=== PATIENT | female | born 1995 | race Caucasian/White ===

== ENCOUNTER 2019-04-21 12:17 | Emergency (ER) | payer SELFPAY ==
[2019-04-21] MEDS ORDERED: Sodium Chloride 0.9% 10 ML Syringe FLUSH PRN (13:24)
[2019-04-21] MEDS ORDERED: Famotidine 20 MG/2 ML SDV IVPUSH ONE (13:24)
--- NOTE | 2019-04-21 14:06 | EDM.PDOC ---
ED HPI GENERAL MEDICAL PROBLEM - General Chief Complaint: Chest Pain Stated Complaint: Chest Pain Time Seen by Provider: 04/21/19 12:20 Source of Information: Reports: Patient. Denies: Old Records (No [facility] records available) History Limitations: Reports: No Limitations - History of Present Illness INITIAL COMMENTS - FREE TEXT/NARRATIVE: The patient was brought to the emergency room via private automobile by her fianc for evaluation of 11/24 nonspecific mostly generalized, however also possibly retrosternal chest discomfort, including possible pressure, fullness, and nausea with symptoms starting on 04/16/19, however somewhat worse during the last couple of days and this morning. Symptoms appear to have started about 2 days after starting recently initiated Wellbutrin therapy for her anxiety and depression. The patient denies any heart flutter, dizziness, orthostasis, orthopnea, diaphoresis, paresthesias, recent decreased exercise tolerance, or any other anginal-type symptoms.No recent history of abdominal pain, nausea, diarrhea, melena, gross hematochezia, or any food intolerance, including fatty foods, etc., although some intermittent heartburn symptoms with only moderate response to previous OTC Tums. She denies any gross hematuria, colic, or other UTI symptoms. The patient also denies any recent fever, cough, wheezing, dyspnea , etc.. Onset: Gradual Onset Date: 04/16/19 Duration: Constant, Getting Worse Location: Reports: Chest. Denies: Head, Neck, Abdomen, Back, Upper Extremity, Left, Upper Extremity, Right Quality: Reports: Ache, Pressure, Same as Previous Episode Severity: Moderate Improves with: Reports: None Worsens with: Reports: Breathing Context: Denies: Sick Contact, Trauma Associated Symptoms: Reports: Chest Pain, Nausea/Vomiting (No emesis). Denies: Cough, Diaphoresis, Fever/Chills, Headaches, Loss of Appetite, Malaise, Rash, Seizure, Shortness of Breath, Syncope, Weakness Treatments TIME LOCK EXPERT: Reports: Other (see below) (None) Generalized Pain Score (Numeric/FACES): 7 - Related Data Allergies Allergy/AdvReac Type Severity Reaction Status Date / Time No Known Allergies Allergy Verified 04/21/19 12:57 Home Meds: Home Meds Acetaminophen [Tylenol] 650 mg PO Q4H PRN 04/21/19 [History] Magnesium Oxide 400 mg PO DAILY #30 tab 12/05/19 [Rx] Multivitamin [Multi-Vitamin Daily] 1 each PO DAILY 04/21/19 [History] Omeprazole 20 mg PO BIDAC #60 cap.sr 04/21/19 [Rx] buPROPion [Wellbutrin SR] 100 mg PO DAILY 04/21/19 [History] Past Medical History HEENT History: Reports: Other (See Below). Denies: Allergic Rhinitis, Cataract , Glaucoma, Hard of Hearing, Impaired Vision, Macular Degeneration, Otitis Media , Retinal Detachment, Sinusitis Other HEENT History: Frequent strep throat. Cardiovascular History: Reports: Syncope, Other (See Below). Denies: Afib, Aneurysm, Arrhythmia, Blood Clots/VTE/DVT, CAD, Cardiomyopathy, Heart Murmur, High Cholesterol, Hypertension, PVD Other Cardiovascular History: She does not know her cholesterol status. Frequent fainting spells since age 11 with no workup to this point. Respiratory History: Reports: Bronchitis, Recurrent. Denies: Asthma, COPD, Intubation, Difficult, Intubation, Previous, PE, Pneumonia, Recurrent, Pneumothorax, Sleep Apnea, SOB, TB Gastrointestinal History: Reports: GERD. Denies: Celiac Disease, Cholelithiasis , Chronic Constipation, Chronic Diarrhea, Colon Polyp, Fatty Liver, Fecal Incontinence, Gastritis, GI Bleed, Hepatitis, Hiatal Hernia, Inflammatory Bowel Disease, Irritable Bowel Syndrome, Jaundice, PUD Genitourinary History: Reports: UTI, Recurrent. Denies: Acute Renal Failure, BPH, Chronic Renal Insuffiency, Renal Calculus, Urinary Incontinence INTELLECTUAL PROPERTY LAWYER History: Reports: , Therapeutic . Denies: Dysfunctional Uterine Bleeding, Endometriosis, Fibroids, Polycystic Ovaries : 2 Para: 1 LMP (Approximate): Other (See Below) Other INTELLECTUAL PROPERTY LAWYER History: The patient is completing her menses currently. Elective SAB during first trimester as below. Otherwise, Full term without complications during pregnancies or deliveries Musculoskeletal History: Reports: Back Pain, Chronic, Neck Pain, Chronic, Osteoarthritis. Denies: Amputation, Arthritis, Fracture, Gout, RA, SLE Neurological History: Reports: Headaches, Chronic. Denies: Cerebral Aneurysms, Concussion, CVA, Head Trauma, Migraines, Neuropathy, Peripheral, Parkinson's, Seizure, TIA, Vertigo Psychiatric History: Reports: Addiction, Anxiety, Depression, Suicidal Ideation , Other (See Below). Denies: Abuse, Victim of, ADD, ADHD, Alzheimers Disease, Dementia, Psych Hospitalization(s), PTSD, Suicide Attempt Other Psychiatric History: Illicit drug use as below. Suicidal ideation without attempt or previous psychiatric hospitalizations. Endocrine/Metabolic History: Reports: Obesity/BMI 30+. Denies: Diabetes, Gestational, Diabetes, Type I, Diabetes, Type II, Diabetes Mellitus, Type 3c, Hypothyroidism, IDDM Hematologic History: Reports: Iron Deficiency, Other (See Below). Denies: Anemia, Blood Transfusion(s) Other Hematologic History: Frequent plasma donor Immunologic History: Reports: None. Denies: AIDS, HIV, SLE Dermatologic History: Reports: None. Denies: Eczema, Psoriasis - Infectious Disease History Infectious Disease History: Reports: Chicken Pox. Denies: C-Difficile, Measles , Meningitis, Mononucleosis, MRSA, Mumps, Pertussis (Whooping Cough), Rheumatic Fever, Rubella, Scarlet Fever, Shingles, TB, VRE - Past Surgical History Head Surgeries/Procedures: Reports: None HEENT Surgical History: Reports: None. Denies: Adenoidectomy, Cataract Surgery , Eye Surgery, Myringotomy w Tube(s), Naso-Sinus Surgery, Tonsillectomy Cardiovascular Surgical History: Reports: None Respiratory Surgical History: Reports: None GI Surgical History: Reports: None. Denies: Appendectomy, Cholecystectomy, Colonoscopy, EGD, Hernia, Abdominal, Hernia, Inguinal, Hernia Repair/Other Female Surgical History: Reports: D&C, Dilitation & Evacuation, Other (See Below) Other Female Surgeries/Procedures: Elective SAB on 09/01/18. Endocrine Surgical History: Reports: None Neurological Surgical History: Reports: None Musculoskeletal Surgical History: Reports: None Oncologic Surgical History: Reports: None Dermatological Surgical History: Reports: None Social & Family History - Tobacco Use Smoking Status *Q: Current Every Day Smoker Tobacco Use Within Last Twelve Months: Cigarettes Years of Tobacco use: 10 Packs/Tins Daily: 0.5 Used Tobacco, but Quit: No Smoking Cessation Information Provided To Patient: Yes Second Hand Smoke Exposure: Yes Source of Second Hand Smoke Exposure: Fianc smokes Second Hand Smoke Education Provided: Yes - Caffeine Use Caffeine Use: Reports: Coffee (3 cups per day), Energy Drinks (2 cans per day), Soda (1 soda per day). Denies: Tea - Alcohol Use Alcohol Use History: Yes Days Per Week of Alcohol Use: 1 Number of Drinks Per Day: 4 Total Drinks Per Week: 4 Total Drinks Per Week Comment: Initially 4 drinks/various types. No previous DWIs, problems with alcohol abuse, etc. Alcohol Use in Last Twelve Months: Yes Alcohol Use Frequency: Weekly - Recreational Drug Use Recreational Drug Use: Yes Drug Use in Last 12 Months: Yes Recreational Drug Type: Reports: Marijuana/Hashish (Monthly use since age 15). 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 ED EXAM, GENERAL - Physical Exam Exam: See Below Exam Limited By: No Limitations General Appearance: Alert, WD/WN, No Apparent Distress, Anxious (Moderate) Eye Exam: Bilateral Eye: Normal Inspection (Nystagmus. Patient wearing soft contacts), PERRL Ears: Normal External Exam, Normal Canal, Hearing Grossly Normal, Normal TMs Nose: Normal Inspection, Normal Mucosa, No Blood Head: Atraumatic, Normocephalic. No: Facial Swelling, Facial Tenderness, Sinus Tenderness Neck: Normal Inspection, Supple, Non-Tender, Full Range of Motion, Thyromegaly. No: Carotid Bruit, Lymphadenopathy (L), Lymphadenopathy (R) Respiratory/Chest: No Respiratory Distress, Lungs Clear, Normal Breath Sounds, No Accessory Muscle Use, Chest Non-Tender (Some possible nonspecific chest discomfort with deep inspiration). No: Pleural Rub, Retractions Cardiovascular: Normal Peripheral Pulses, Regular Rate, Rhythm, No Edema, No Gallop, No JVD, No Murmur, No Rub. No: Gallop/S3, Gallop/S4, Friction Rub Peripheral Pulses: 2+: Radial (L), Radial (R), Dorsalis Pedis (L), Dorsalis Pedis (R) GI/Abdominal: Normal Bowel Sounds, Soft, Non-Tender, No Organomegaly, No Distention, No Abnormal Bruit, No Mass, Other (Obese). No: Guarding (Female) Exam: Deferred Rectal (Female) Exam: Deferred Back Exam: Normal Inspection, Full Range of Motion. No: CVA Tenderness (L), CVA Tenderness (R), Muscle Spasm Extremities: Normal Inspection, Normal Range of Motion, Non-Tender, No Pedal Edema, Normal Capillary Refill. No: Rosy's Sign Neurological: Alert, Oriented, CN II-XII Intact, Normal Cognition, Normal Gait, Normal Reflexes (Negative Babinski's), No Motor/Sensory Deficits Psychiatric: Anxious (Moderate), Depressed Mood (Moderate with good eye contact and no suicidal ideation) Skin Exam: Warm, Dry, Intact, Normal Color, No Rash. No: Diaphoretic, Wound/ Incision Lymphatic: No Adenopathy EKG INTERPRETATION EKG Date: 04/21/19 Time: 12:23 Rhythm: NSR (With mild sinus arrhythmia) Rate (Beats/Min): 84 [place]: Normal (Neutral) P-Wave: Present (Mild diffuse biphasic P waves with poor R-wave progression in the anterior leads) QRS: Normal (0.09 seconds with T-wave inversions in leads 3 and V1) ST-T: Normal QT: Normal AR/PQ Interval: 0.15 seconds with no delta waves noted Comparison: NA - No Prior EKG EKG Interpretation Comments: 1. No acute ischemic changes 2. Sinus arrhythmia Course - Vital Signs Last Recorded V/S: Last Vital Signs Temp 36.1 C 04/21/19 12:17 Pulse 80 04/21/19 14:20 Resp 14 04/21/19 14:20 BP 136/83 04/21/19 14:20 Pulse Ox 100 04/21/19 14:20 Vital Signs - 24 hr 04/21/19 04/21/19 04/21/19 12:17 12:45 13:15 Temperature [ 36.1 C Temporal] Pulse, 82 82 81 Peripheral [ Pulse Oximetry] Respiratory 16 14 14 Rate Blood Pressure 129/68 129/73 [Left Upper Arm ] O2 Sat by Pulse 100 100 100 Oximetry 04/21/19 04/21/19 13:30 14:20 Temperature [ Temporal] Pulse, 93 80 Peripheral [ Pulse Oximetry] Respiratory 19 14 Rate Blood Pressure 122/68 136/83 [Left Upper Arm ] O2 Sat by Pulse 100 100 Oximetry - Orders/Labs/Meds Orders: Active Orders 24 hr Category Date Time Status Cardiac Monitoring [RC] . DIRECTED Care 04/21/19 13:24 Active EKG Documentation Completion [RC] ASDIRECTED Care 04/21/19 13:24 Active Oxygen Therapy, ED [RC] CONTINUOUS Care 04/21/19 13:24 Active Peripheral IV Care [RC] . DIRECTED Care 04/21/19 13:24 Inactive Pulse Oximetry [RC] CONTINUOUS Care 04/21/19 13:24 Active Up With Assistance [RC] PFP Care 04/21/19 13:24 Active Vital Signs [RC] PFP Care 04/21/19 13:24 Active Nothing per Oral Now Diet [DIET] Diet 04/21/19 Breakfast Active Chest 1V Frontal [CR] Stat Exams 04/21/19 13:24 Taken Obtain Past Medical Record [OM.PC] Urgent Oth 04/21/19 13:24 Active Resuscitation Status Stat Resus Stat 04/21/19 13:24 Ordered Labs: Laboratory Tests 04/21/19 04/21/19 04/21/19 Range/Units 13:40 13:40 13:40 WBC 10.3 H (4.0-10.2) K/uL RBC 3.71 L (3.77-5.09) M/uL Hgb 11.3 L (11.7-15.5) g/dL Hct 34.5 (34.0-46.0) % MCV 93.0 (84.0-98.0) fL MCH 30.5 (28.2-33.3) pg MCHC 32.8 (31.7-36.0) g/dL RDW 12.0 (11.2-14.1) % Plt Count 202 (150-350) K/uL Neut % (Auto) 74.8 (45.0-80.0) % Lymph % (Auto) 17.2 (10.0-50.0) % Larue % (Auto) 7.0 (2.0-14.0) % Eos % (Auto) 0.9 (0.0-5.0) % Baso % (Auto) 0.1 (0.0-2.0) % Neut # (Auto) 7.68 H (1.40-7.00) K/uL Lymph # (Auto) 1.76 (0.50-3.50) K/uL Larue # (Auto) 0.72 (0.00-1.00) K/uL Eos # (Auto) 0.09 (0.00-0.50) K/uL Baso # (Auto) 0.01 (0.00-0.20) K/uL PT 10.7 (9.5-12.0) SEC INR 1.0 APTT 35.2 H (21.0-31.3) SEC D-Dimer, Quantitative 123 (0-400) ng/mL Sodium (136-145) mmol/L Potassium (3.5-5.1) mmol/L Chloride (98-107) mmol/L Carbon Dioxide (21.0-32.0) mmol/L BUN (7-18) mg/dL Creatinine (0.51-1.17) mg/dL Est Cr Clr Drug Dosing mL/min Estimated GFR (MDRD) mL/min Glucose (74-106) mg/dL Lactic Acid (0.4-2.0) mmol/L Uric Acid (2.6-7.2) mg/dL Calcium (8.5-10.1) mg/dL Magnesium (1.8-2.4) mg/dL Total Bilirubin (0.2-1.0) mg/dL AST (15-37) U/L ALT (12-78) U/L Alkaline Phosphatase (46-116) IU/L Creatine Kinase (26-308) U/L Creatine Kinase Index (0.0-2.5) % CK-MB (CK-2) (0.00-3.60) ng/mL Troponin I (0.000-0.056) ng/mL NT-Pro-B Natriuret Pep (0-125) pg/mL Total Protein (6.4-8.2) g/dL Albumin (3.4-5.0) g/dL TSH, Ultra Sensitive (0.358-3.740) mIU/mL 04/21/19 04/21/19 Range/Units 13:40 13:40 WBC (4.0-10.2) K/uL RBC (3.77-5.09) M/uL Hgb (11.7-15.5) g/dL Hct (34.0-46.0) % MCV (84.0-98.0) fL MCH (28.2-33.3) pg MCHC (31.7-36.0) g/dL RDW (11.2-14.1) % Plt Count (150-350) K/uL Neut % (Auto) (45.0-80.0) % Lymph % (Auto) (10.0-50.0) % Larue % (Auto) (2.0-14.0) % Eos % (Auto) (0.0-5.0) % Baso % (Auto) (0.0-2.0) % Neut # (Auto) (1.40-7.00) K/uL Lymph # (Auto) (0.50-3.50) K/uL Larue # (Auto) (0.00-1.00) K/uL Eos # (Auto) (0.00-0.50) K/uL Baso # (Auto) (0.00-0.20) K/uL PT (9.5-12.0) SEC INR APTT (21.0-31.3) SEC D-Dimer, Quantitative (0-400) ng/mL Sodium 140 (136-145) mmol/L Potassium 3.9 (3.5-5.1) mmol/L Chloride 104 (98-107) mmol/L Carbon Dioxide 25.9 (21.0-32.0) mmol/L BUN 13 (7-18) mg/dL Creatinine 0.71 (0.51-1.17) mg/dL Est Cr Clr Drug Dosing 137.74 mL/min Estimated GFR (MDRD) > 60 mL/min Glucose 84 (74-106) mg/dL Lactic Acid 0.7 (0.4-2.0) mmol/L Uric Acid 4.5 (2.6-7.2) mg/dL Calcium 8.8 (8.5-10.1) mg/dL Magnesium 1.6 L (1.8-2.4) mg/dL Total Bilirubin 0.5 (0.2-1.0) mg/dL AST 16 (15-37) U/L ALT 20 (12-78) U/L Alkaline Phosphatase 63 (46-116) IU/L Creatine Kinase 82 (26-308) U/L Creatine Kinase Index 1.1 (0.0-2.5) % CK-MB (CK-2) 0.90 (0.00-3.60) ng/mL Troponin I 0.000 (0.000-0.056) ng/mL NT-Pro-B Natriuret Pep 55 (0-125) pg/mL Total Protein 7.2 (6.4-8.2) g/dL Albumin 3.7 (3.4-5.0) g/dL TSH, Ultra Sensitive 0.609 (0.358-3.740) mIU/mL Meds: Medications Discontinued Medications Generic Name Dose Route Start Last Admin Trade Name Freq PRN Reason Stop Dose Admin Famotidine 40 mg 04/21/19 13:24 Pepcid IVPUSH 04/21/19 13:25 ONETIME ONE Sodium Chloride 10 ml 04/21/19 13:24 Saline Flush FLUSH ASDIRECTED PRN Keep Vein Open IV access could not be obtained. - Radiology Interpretation Free Text/Narrative:: manager retail shows normal sinus rhythm with heart rate in the 80s. Chest x-ray, portable, shows mild pulmonary obstructive disease with no cardiomegaly, CHF, pulmonary infiltrates, pneumothorax, etc. Departure - Departure Time of Disposition: 14:45 Disposition: Home, Self-Care 01 Condition: Good Clinical Impression: Tobacco abuse counseling, Illicit drug use, continuous, Peptic reflux disease, Mixed anxiety depressive disorder, Hypomagnesemia Chest pain Qualifiers: Chest pain type: other chest pain Qualified Code(s): R07.89 - Other chest pain Leukocytosis Qualifiers: Leukocytosis type: bandemia Qualified Code(s): D72.825 - Bandemia Anemia Qualifiers: Anemia type: other cause Other causes of anemia: other cause, not classified Qualified Code(s): D64.89 - Other specified anemias Osteoarthritis Qualifiers: Osteoarthritis location: multiple joints Osteoarthritis type: primary Qualified Code(s): M15.0 - Primary generalized (osteo)arthritis - Discharge Information *PRESCRIPTION DRUG MONITORING PROGRAM REVIEWED*: Not Applicable *COPY OF PRESCRIPTION DRUG MONITORING REPORT IN PATIENT DAVID: Not Applicable Prescriptions: Magnesium Oxide 400 mg PO DAILY #30 tab Omeprazole 20 mg PO BIDAC #60 cap.sr Instructions: Steps to Quit Smoking, [id number], Health Risks of Smoking, Chest Wall Pain, [id number] Referrals: PCP,Not In Area [Primary Care Provider] - Forms: ED Department Discharge, ED Return to Work/School Form Additional Instructions: 1. Followup with your regular provider in 7 days as directed for reevaluation and recommended repeat CBC and magnesium level. Bring these discharge instructions with you to that visit. 2. Tylenol 650 mg by mouth every 4 hours and/or OTC ibuprofen 2-3 tabs by mouth every 6 hours with food as directed./needed. You may stagger these medications for 48-72 hours only, which essentially means that you are receiving a pain medication about every 2 hours. 3. Stop all tobacco and marijuana use RODGER as directed/per provided information and consider contacting Quit LIne, etc.. 4. Discontinue all energy drink use and decrease caffeine intake RODGER as discussed. 5. Work excuse 6. Immediately after this visit verify that your cellular telephone's voicemail has been activated and is empty. Also verify that your home telephone 's answering machine is operating properly and has space to receive messages. Note that it is sometimes necessary for us to be able to contact you at a later date to discuss your medical care. 7. Please remember that we are ALWAYS here for you and want to answer any questions you may have. Feel free to call the hospital any time and we call you back RODGER. 8. Discuss further adjustment of your medications at the above follow-up visit with possible further workup for your heartburn and mild anemia as discussed - Problem List & Annotations (1) Chest pain SNOMED Code(s): 82984547 Code(s): R07.9 - CHEST PAIN, UNSPECIFIED Status: Acute Priority: High Current Visit: Yes Onset Date: ~04/16/19 Annotation/Comment:: Nonspecific chest pain with no true anginal type symptoms. Chest pain protocol was not initiated in the emergency room. Symptoms appear to the patient adjusting to recently initiated Wellbutrin therapy, however no direct evidence of an allergic reaction or significant intolerance. This medication should become continued for now. Work Excuse provided with no activity restrictions warranted. Continue to observe symptoms closely with further workup depending on her clinical course. Note symptoms reproducible with deep inspiration with no evidence of fever or true bronchitic type symptoms. Anxiety component also present. Qualifiers: Chest pain type: other chest pain Qualified Code(s): R07.89 - Other chest pain; R07.8 - Other chest pain (2) Peptic reflux disease SNOMED Code(s): 884621491 Code(s): K21.9 - GASTRO-ESOPHAGEAL REFLUX DISEASE WITHOUT ESOPHAGITIS Status: Chronic Priority: Medium Current Visit: Yes Annotation/Comment:: Initial IV Pepcid therapy was ordered, however note difficult IV access. Begin outpatient Prilosec therapy as per discharge instructions. Further workup including H. pylori stool antigen, EGD, etc. depending on her clinical course. (3) Anemia SNOMED Code(s): 982421934 Code(s): D64.9 - ANEMIA, UNSPECIFIED Status: Acute Priority: Medium Current Visit: Yes Onset Date: 04/21/19 Annotation/Comment:: Mild borderline anemia today. Note that patient has frequently donated plasma in the past. Further workup depending on her clinical course including possible iron studies, GI workup as above, etc. Qualifiers: Anemia type: other cause Other causes of anemia: other cause, not classified Qualified Code(s): D64.89 - Other specified anemias (4) Illicit drug use, continuous SNOMED Code(s): 801007870 Code(s): F19.90 - OTHER PSYCHOACTIVE SUBSTANCE USE, UNSPECIFIED, UNCOMPLICATED Status: Chronic Priority: Medium Current Visit: Yes Annotation/Comment:: Note current anxiety. Discontinuation advisable. (5) Leukocytosis SNOMED Code(s): 867245989, 920796414 Code(s): D72.829 - ELEVATED WHITE BLOOD CELL COUNT, UNSPECIFIED Status: Acute Priority: Medium Current Visit: Yes Onset Date: 04/21/19 Annotation/Comment:: Likely secondary to stress reaction. No significant fever or bronchitic type symptoms. No antibiotic therapy warranted. Close follow-up by regular provider. Qualifiers: Leukocytosis type: bandemia Qualified Code(s): D72.825 - Bandemia (6) Mixed anxiety depressive disorder SNOMED Code(s): 562895901 Code(s): F41.8 - OTHER SPECIFIED ANXIETY DISORDERS Status: Chronic Priority: Medium Current Visit: Yes Annotation/Comment:: Moderate control based on today's evaluation. Continue to observe closely by her regular provider. Note recently initiated medication as above. No suicidal ideation currently, although present prior to initiation of the above medications. Emotional support provided. Further counseling depending on her clinical course. (7) Osteoarthritis SNOMED Code(s): 538696253 Code(s): M19.90 - UNSPECIFIED OSTEOARTHRITIS, UNSPECIFIED SITE Status: Chronic Priority: Medium Current Visit: Yes Annotation/Comment:: Stable by history Qualifiers: Osteoarthritis location: multiple joints Osteoarthritis type: primary Qualified Code(s): M15.0 - Primary generalized (osteo)arthritis (8) Tobacco abuse counseling SNOMED Code(s): 335849233, 674357341, 934699070 Code(s): Z71.6 - TOBACCO ABUSE COUNSELING Status: Chronic Priority: Medium Current Visit: Yes Annotation/Comment:: Tobacco cessation strongly encouraged the patient and her fianc with information provided at discharge. Possible beginning pulmonary obstructive disease. Consider PFTs. - Problem List Review Problem List Initiated/Reviewed/Updated: Yes - My Orders Last 24 Hours: My Active Orders 04/21/19 13:24 Cardiac Monitoring [RC] . DIRECTED EKG Documentation Completion [RC] ASDIRECTED Oxygen Therapy, ED [RC] CONTINUOUS Peripheral IV Care [RC] . DIRECTED Pulse Oximetry [RC] CONTINUOUS Up With Assistance [RC] PFP Vital Signs [RC] PFP Chest 1V Frontal [CR] Stat Obtain Past Medical Record [OM.PC] Urgent Resuscitation Status Stat 04/21/19 Breakfast Nothing per Oral Now Diet [DIET] - Assessment/Plan Last 24 Hours: My Active Orders 04/21/19 13:24 Cardiac Monitoring [RC] . DIRECTED EKG Documentation Completion [RC] ASDIRECTED Oxygen Therapy, ED [RC] CONTINUOUS Peripheral IV Care [RC] . DIRECTED Pulse Oximetry [RC] CONTINUOUS Up With Assistance [RC] PFP Vital Signs [RC] PFP Chest 1V Frontal [CR] Stat Obtain Past Medical Record [OM.PC] Urgent Resuscitation Status Stat 04/21/19 Breakfast Nothing per Oral Now Diet [DIET] Assessment:: As above Plan: As above. Extensive precautions were given to the patient, who is in agreement with the treatment plan. See Patient Instructions for further treatment and plan.
[2019-04-21 14:14] LABS: CHLORIDE,CL 104 mmol/L (98-107); SODIUM,NA 140 mmol/L (136-145)
== END 2019-04-21 14:50 | disposition home or self-care (01) ==
LOC: LL.ED 12:17
DX: R07.89 Other chest pain (principal); K21.9 Gastro-esophageal reflux disease without esophagitis; D72.825 Bandemia; D64.89 Other specified anemias; M15.0 Primary generalized (osteo)arthritis; F41.8 Other specified anxiety disorders; F19.90 Other psychoactive substance use, unspecified, uncomplicated; E83.42 Hypomagnesemia; Z71.6 Tobacco abuse counseling; F17.210 Nicotine dependence, cigarettes, uncomplicated; E66.9 Obesity, unspecified; Z68.30 Body mass index [BMI] 30.0-30.9, adult; Z79.899 Other long term (current) drug therapy
CPT/HCPCS: 36415; 71045; 80053; 82550; 82553; 83605; 83735; 83880; 84443; 84484; 84550; 85025; 85379; 85610; 85730; 93005; 93010; 99284; 99285-25

== ENCOUNTER 2019-12-26 21:15 | Observation (INO) | payer MEDICAID ==
[2019-12-26] MEDS ORDERED: Ketorolac 30 MG/ML SDV IVPUSH ONE (21:42)
[2019-12-26] MEDS ORDERED: Ondansetron 4 MG/2 ML SDV IVPUSH ONE (21:42)
[2019-12-26] MEDS ORDERED: Sodium Chloride 0.9% 1,000 ML IV SCH (21:45)
[2019-12-26] MEDS: Sodium Chloride 0.9% 10 ML Syringe FLUSH PRN ×2 (21:56→23:06)
[2019-12-26 21:59] LABS: CHLORIDE,CL 99 mmol/L (98-107); SODIUM,NA 136 mmol/L (136-145)
--- NOTE | 2019-12-26 22:05 | EDM.PDOC ---
ED HPI GENERAL MEDICAL PROBLEM - General Chief Complaint: Back Pain or Injury Stated Complaint: Backpain Time Seen by Provider: 12/26/19 21:44 Source of Information: Reports: Patient History Limitations: Reports: No Limitations - History of Present Illness INITIAL COMMENTS - FREE TEXT/NARRATIVE: Patient comes to ER complaining of left low back pain that started yesterday. Also complaints of pain in left lower abdomen, burning with urination. Noted to have fever upon arrival. Reports nausea with two episodes emesis. No bowel changes. Also mild nasal congestion during ROS. Hx of previous UTIs but no pyelonephritis. No history of kidney stones. - Related Data Allergies Allergy/AdvReac Type Severity Reaction Status Date / Time No Known Allergies Allergy Verified 04/21/19 12:57 Home Meds: Home Meds Acetaminophen [Tylenol] 650 mg PO Q4H PRN 04/21/19 [History] Magnesium Oxide 400 mg PO DAILY #30 tab 04/21/19 [Rx] Multivitamin [Multi-Vitamin Daily] 1 each PO DAILY 04/21/19 [History] Ferrous Sulfate 325 mg PO DAILY 12/26/19 [History] Non-Formulary Medication [NF Drug] 1 each PO DAILY 12/26/19 [History] Zinc 50 mg PO DAILY 12/26/19 [History] Past Medical History HEENT History: Reports: Other (See Below). Denies: Allergic Rhinitis, Cataract, Glaucoma, Hard of Hearing, Impaired Vision, Macular Degeneration, Otitis Media, Retinal Detachment, Sinusitis Other HEENT History: Frequent strep throat. Cardiovascular History: Reports: Syncope, Other (See Below). Denies: Afib, Aneurysm, Arrhythmia, Blood Clots/VTE/DVT, CAD, Cardiomyopathy, Heart Murmur, High Cholesterol, Hypertension, PVD Other Cardiovascular History: She does not know her cholesterol status. Frequent fainting spells since age 11 with no workup to this point. Respiratory History: Reports: Bronchitis, Recurrent. Denies: Asthma, COPD, Intubation, Difficult, Intubation, Previous, PE, Pneumonia, Recurrent, Pneumothorax, Sleep Apnea, SOB, TB Gastrointestinal History: Reports: GERD. Denies: Celiac Disease, Cholelithiasis, Chronic Constipation, Chronic Diarrhea, Colon Polyp, Fatty Liver, Fecal Incontinence, Gastritis, GI Bleed, Hepatitis, Hiatal Hernia, Inflammatory Bowel Disease, Irritable Bowel Syndrome, Jaundice, PUD Genitourinary History: Reports: UTI, Recurrent. Denies: Acute Renal Failure, BPH, Chronic Renal Insuffiency, Renal Calculus, Urinary Incontinence BOILERMAKER History: Reports: , Therapeutic . Denies: Dysfunctional Uterine Bleeding, Endometriosis, Fibroids, Polycystic Ovaries Other BOILERMAKER History: The patient is completing her menses currently. Elective SAB during first trimester as below. Otherwise, Full term without complications during pregnancies or deliveries Musculoskeletal History: Reports: Back Pain, Chronic, Neck Pain, Chronic, Osteoarthritis. Denies: Amputation, Arthritis, Fracture, Gout, RA, SLE Neurological History: Reports: Headaches, Chronic. Denies: Cerebral Aneurysms, Concussion, CVA, Head Trauma, Migraines, Neuropathy, Peripheral, Parkinson's, Seizure, TIA, Vertigo Psychiatric History: Reports: Addiction, Anxiety, Depression, Suicidal Ideation, Other (See Below). Denies: Abuse, Victim of, ADD, ADHD, Alzheimers Disease, Dementia, Psych Hospitalization(s), PTSD, Suicide Attempt Other Psychiatric History: Illicit drug use as below. Suicidal ideation without attempt or previous psychiatric hospitalizations. Endocrine/Metabolic History: Reports: Obesity/BMI 30+. Denies: Diabetes, Gestational, Diabetes, Type I, Diabetes, Type II, Diabetes Mellitus, Type 3c, Hypothyroidism, IDDM Hematologic History: Reports: Iron Deficiency, Other (See Below). Denies: Anemia, Blood Transfusion(s) Other Hematologic History: Frequent plasma donor Immunologic History: Reports: None. Denies: AIDS, HIV, SLE Dermatologic History: Reports: None. Denies: Eczema, Psoriasis - Infectious Disease History Infectious Disease History: Reports: Chicken Pox. Denies: C-Difficile, Measles, Meningitis, Mononucleosis, MRSA, Mumps, Pertussis (Whooping Cough), Rheumatic Fever, Rubella, Scarlet Fever, Shingles, TB, VRE - Past Surgical History Head Surgeries/Procedures: Reports: None HEENT Surgical History: Reports: None. Denies: Adenoidectomy, Cataract Surgery, Eye Surgery, Myringotomy w Tube(s), Naso-Sinus Surgery, Tonsillectomy Cardiovascular Surgical History: Reports: None Respiratory Surgical History: Reports: None GI Surgical History: Reports: None. Denies: Appendectomy, Cholecystectomy, Colonoscopy, EGD, Hernia, Abdominal, Hernia, Inguinal, Hernia Repair/Other Female Surgical History: Reports: D&C, Dilitation & Evacuation, Other (See Below) Other Female Surgeries/Procedures: Elective SAB on 09/01/18. Endocrine Surgical History: Reports: None Neurological Surgical History: Reports: None Musculoskeletal Surgical History: Reports: None Oncologic Surgical History: Reports: None Dermatological Surgical History: Reports: None Social & Family History - Caffeine Use Caffeine Use: Reports: Coffee (3 cups per day), Energy Drinks (2 cans per day), Soda (1 soda per day). 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 Denies: Black Stool, Bloody Stool, Constipation, Diarrhea, Hematemesis : Reports: Flank Pain, Pain. Denies: Hematuria Musculoskeletal: Reports: No Symptoms Skin: Reports: No Symptoms Neurological: Reports: No Symptoms Psychiatric: Reports: No Symptoms Hematologic/Lymphatic: Reports: No Symptoms ED EXAM, GENERAL - Physical Exam Exam: See Below Exam Limited By: No Limitations General Appearance: Alert, WD/WN, Mild Distress Eye Exam: Bilateral Eye: EOMI, PERRL Ears: Hearing Grossly Normal Nose: No: Nasal Deformity, Nasal Swelling, Nasal Drainage Throat/Mouth: Normal Lips, Normal Voice, No Airway Compromise Head: Atraumatic, Normocephalic Neck: Supple Respiratory/Chest: No Respiratory Distress, Lungs Clear, Normal Breath Sounds, No Accessory Muscle Use, Chest Non-Tender Cardiovascular: No Edema, No Murmur, Tachycardia GI/Abdominal: Tender (LLQ), Abnormal Bowel Sounds (diminished throughout). No: Rigid, Rebound, Mass (Female) Exam: No: Deferred Rectal (Female) Exam: No: Deferred Back Exam: CVA Tenderness (L). No: CVA Tenderness (R), Muscle Spasm, Paraspinal Tenderness, Vertebral Tenderness Extremities: Normal Inspection, Normal Capillary Refill Neurological: Alert, Oriented, Normal Cognition, Normal Gait, No Motor/Sensory Deficits Psychiatric: Normal Affect, Normal Mood Skin Exam: Warm, Dry, Intact, Normal Color Course - Orders/Labs/Meds Orders: Active Orders 24 hr Category Date Time Status Chest 1V Frontal [CR] Stat Exams 12/26/19 21:25 Ordered CBC WITH AUTO DIFF [HEME] Stat Lab 12/26/19 21:39 Ordered COMPREHENSIVE METABOLIC PN,CMP [CHEM] Stat Lab 12/26/19 21:39 Ordered CORONAVIRUS COVID-19 PCR PHL Routine Lab 12/26/19 21:40 Ordered CULTURE BLOOD [BC] Stat Lab 12/26/19 21:50 Ordered CULTURE BLOOD [BC] Stat Lab 12/26/19 21:50 Ordered LACTIC ACID [CHEM] Stat Lab 12/26/19 21:40 Ordered UA W/MICROSCOPIC [URIN] Stat Lab 12/26/19 20:23 Received Sodium Chloride 0.9% [Normal Saline] 1,000 ml Med 12/26/19 21:45 Active IV ASDIRECTED Sodium Chloride 0.9% [Saline Flush] Med 12/26/19 21:41 Active 10 ml FLUSH ASDIRECTED PRN Blood Culture x2 Reflex Set [OM.PC] Stat Oth 12/26/19 21:50 Ordered Saline Lock Insert [OM.PC] Routine Oth 12/26/19 21:41 Ordered Medication Orders Sodium Chloride (Normal Saline) 1,000 mls @ 999 mls/hr IV ASDIRECTED ISMA Sodium Chloride (Saline Flush) 10 ml FLUSH ASDIRECTED PRN PRN Reason: Keep Vein Open Labs: Laboratory Tests 12/26/19 Range/Units 20:23 Urine HCG, Qual Negative Meds: Medications Generic Name Dose Route Start Last Admin Trade Name Freq PRN Reason Stop Dose Admin Sodium Chloride 1,000 mls @ 999 mls/hr 12/26/19 21:45 Normal Saline IV ASDIRECTED ISMA Sodium Chloride 10 ml 12/26/19 21:41 Saline Flush FLUSH ASDIRECTED PRN Keep Vein Open Discontinued Medications Generic Name Dose Route Start Last Admin Trade Name Freq PRN Reason Stop Dose Admin Ketorolac Tromethamine 30 mg 12/26/19 21:42 Toradol IVPUSH 12/26/19 21:43 ONETIME ONE Ondansetron HCl 4 mg 12/26/19 21:42 Zofran IVPUSH 12/26/19 21:43 ONETIME ONE - Radiology Interpretation Free Text/Narrative:: Chest xray unremarkable. - Re-Assessments/Exams Free Text/Narrative Re-Assessment/Exam: 12/26/19 22:08 Labs ordered. Given fever/back pain/nasal congestion a Covid test was performed. test negative. UA + for occult blood and mild pyuria. UC ordered. WBC elevated at 13.7 Thrombocytopenia. K 3.3 Given patient's history of frequent UTIs, along with fever/dysuria/urinary frequency/left low back and left lower abdominal & suprapubic pain, suspect UTI most likely etiology for complaint. Differential includes kidney stone. Patient declined any further imaging including CT to formally rule out kidney stone at this time due to feared cost. She was agreeable with plan to admit observation and receive IV fluids/Rocephin as treatment for possible pyelonephritis. Observation admission felt appropriate given severity of discomfort, tachycardia, fever, and suggestion of developing pyelonephritis. Departure - Departure Time of Disposition: 22:15 Disposition: Refer to Observation Condition: Good Clinical Impression: Acute flank pain, Dysuria - Discharge Information *PRESCRIPTION DRUG MONITORING PROGRAM REVIEWED*: Not Applicable *COPY OF PRESCRIPTION DRUG MONITORING REPORT IN PATIENT DAVID: Not Applicable Referrals: PCP,Not In Area [Primary Care Provider] - - Problem List & Annotations (1) Acute flank pain SNOMED Code(s): 075717014, 502766003 Code(s): R10.9 - UNSPECIFIED ABDOMINAL PAIN Status: Acute Priority: High Current Visit: Yes Onset Date: 12/25/19 Annotation/Comment:: Left back pain in low back and flank area for approximately 24 hours. Accompanied by fever, leukocytosis, nausea,emesis and abdominal discomfort. History of frequent UTIs. WBCs noted in UA. UC pending. Suspect symptoms may be due to developing pyelonephritis. Admit observation/IV fluids/IV Rocephin. Patient wishes to avoid CT scan to rule out kidney stone at this time. (2) Dysuria SNOMED Code(s): 84553863 Code(s): R30.0 - DYSURIA Status: Acute Priority: High Current Visit: Yes Onset Date: 12/25/19 Annotation/Comment:: as above (3) Tobacco abuse counseling SNOMED Code(s): 598102738, 076866455, 083122075 Code(s): Z71.6 - TOBACCO ABUSE COUNSELING Status: Chronic Priority: Medium Current Visit: No Annotation/Comment:: Tobacco cessation strongly encouraged the patient (4) Peptic reflux disease SNOMED Code(s): 588953106 Code(s): K21.9 - GASTRO-ESOPHAGEAL REFLUX DISEASE WITHOUT ESOPHAGITIS Status: Chronic Priority: Medium Current Visit: No Annotation/Comment:: Stable per patient (5) Mixed anxiety depressive disorder SNOMED Code(s): 261080341 Code(s): F41.8 - OTHER SPECIFIED ANXIETY DISORDERS Status: Chronic Priority: Medium Current Visit: No Annotation/Comment:: Stable per patient (6) Hypomagnesemia SNOMED Code(s): 412674764 Code(s): E83.42 - HYPOMAGNESEMIA Status: Chronic Priority: Low Current Visit: No Annotation/Comment:: Taking replacement oral supplement - Problem List Review Problem List Initiated/Reviewed/Updated: Yes - My Orders Last 24 Hours: My Active Orders 12/26/19 20:23 UA W/MICROSCOPIC [URIN] Stat 12/26/19 21:25 Chest 1V Frontal [CR] Stat 12/26/19 21:39 CBC WITH AUTO DIFF [HEME] Stat COMPREHENSIVE METABOLIC PN,CMP [CHEM] Stat 12/26/19 21:40 CORONAVIRUS COVID-19 PCR PHL Routine LACTIC ACID [CHEM] Stat 12/26/19 21:41 Sodium Chloride 0.9% [Saline Flush] 10 ml FLUSH ASDIRECTED PRN Saline Lock Insert [OM.PC] Routine 12/26/19 21:45 Sodium Chloride 0.9% [Normal Saline] 1,000 ml IV ASDIRECTED 12/26/19 21:50 CULTURE BLOOD [BC] Stat CULTURE BLOOD [BC] Stat Blood Culture x2 Reflex Set [OM.PC] Stat - Assessment/Plan Admission H&P: Please use this note as an admission H&P Last 24 Hours: My Active Orders 12/26/19 20:23 UA W/MICROSCOPIC [URIN] Stat 12/26/19 21:25 Chest 1V Frontal [CR] Stat 12/26/19 21:39 CBC WITH AUTO DIFF [HEME] Stat COMPREHENSIVE METABOLIC PN,CMP [CHEM] Stat 12/26/19 21:40 CORONAVIRUS COVID-19 PCR PHL Routine LACTIC ACID [CHEM] Stat 12/26/19 21:41 Sodium Chloride 0.9% [Saline Flush] 10 ml FLUSH ASDIRECTED PRN Saline Lock Insert [OM.PC] Routine 12/26/19 21:45 Sodium Chloride 0.9% [Normal Saline] 1,000 ml IV ASDIRECTED 12/26/19 21:50 CULTURE BLOOD [BC] Stat CULTURE BLOOD [BC] Stat Blood Culture x2 Reflex Set [OM.PC] Stat Assessment:: As above. Stable and suitable for general supervision. Plan: as above. Covid testing and UC pending. Anticipate possible discharge tomorrow on oral antibiotics depending on clinical course. May need to revisit idea of possible CT scan to rule out kidney stone, again depending on clinical course.
[2019-12-26] MEDS ORDERED: Potassium Chloride 20 MEQ Tab.ER PO ONE (22:09)
[2019-12-26] MEDS ORDERED: cefTRIAXone 1 GM in Sodium Chloride 0.9% 100 ML IV ONE (22:27)
[2019-12-26] MEDS ORDERED: Ondansetron 4 MG/2 ML SDV IVPUSH PRN (22:51)
[2019-12-27] MEDS ORDERED: Potassium Chloride 10 MEQ Tab.ER PO ONE (01:00)
[2019-12-27] MEDS: Nicotine 21 MG/24 Hr Patch TRDERM SCH ×2 (01:22→08:54)
[2019-12-27] MEDS: Sodium Chloride 0.9% 1,000 ML IV SCH ×2 (01:22→06:47)
[2019-12-27] MEDS: Acetaminophen 325 MG Tab PO PRN ×2 (01:28→08:58)
[2019-12-27] MEDS ORDERED: Ketorolac 30 MG/ML SDV IVPUSH PRN (05:00)
[2019-12-27 10:09] LABS: CHLORIDE,CL 104 mmol/L (98-107); SODIUM,NA 138 mmol/L (136-145)
--- NOTE | 2019-12-27 11:33 | PCM.DCSUM1 ---
Discharge Summary - Hospital Course Brief History: Admitted for further evaluation and treatment of dysuria/lower abd pain/low back and flank pain/fever Diagnosis: Stroke: No - Discharge Data Discharge Date: 12/27/19 Discharge Disposition: Home, Self-Care 01 Condition: Good - Referral to Home Health Primary Care Physician: PCP Not In Area - Discharge Diagnosis/Problem(s) (1) Acute flank pain SNOMED Code(s): 158111353, 573331665 ICD Code: R10.9 - UNSPECIFIED ABDOMINAL PAIN Status: Acute Priority: High Current Visit: Yes Onset Date: 12/25/19 Problem Details: Left back pain in low back and flank area for approximately 24 hours prior to presentation. Accompanied by fever, leukocytosis, nausea,emesis and abdominal discomfort. History of frequent UTIs. WBCs noted in UA. UC pending. Suspect symptoms may be due to developing pyelonephritis. Admitted observation/IV fluids/IV Rocephin. Patient wishes to avoid CT scan to rule out kidney stone at this time. Feels better this morning but symptoms have not completely resolved. Plan for now will be to have patient receive Rocephin IV tonight and possibly tomorrow night while waiting for culture results. Consider CT of abdomen depending on clinical course. (2) Dysuria SNOMED Code(s): 77910801 ICD Code: R30.0 - DYSURIA Status: Acute Priority: High Current Visit: Yes Onset Date: 12/25/19 Problem Details: as above (3) Tobacco abuse counseling SNOMED Code(s): 246195113, 186306902, 408655595 ICD Code: Z71.6 - TOBACCO ABUSE COUNSELING Status: Chronic Priority: Medium Current Visit: No Problem Details: Tobacco cessation strongly encouraged the patient (4) Peptic reflux disease SNOMED Code(s): 204816440 ICD Code: K21.9 - GASTRO-ESOPHAGEAL REFLUX DISEASE WITHOUT ESOPHAGITIS Status: Chronic Priority: Medium Current Visit: No Problem Details: Stable per patient (5) Mixed anxiety depressive disorder SNOMED Code(s): 210510484 ICD Code: F41.8 - OTHER SPECIFIED ANXIETY DISORDERS Status: Chronic Priority: Medium Current Visit: No Problem Details: Stable per patient (6) Hypomagnesemia SNOMED Code(s): 069328512 ICD Code: E83.42 - HYPOMAGNESEMIA Status: Chronic Priority: Low Current Visit: No Problem Details: Taking replacement oral supplement. Slightly low when level checke this morning. Will have patient increase supplementation and get rechecked in a month. - Patient Summary/Data Hospital Course: Patient received single dose Rocephin last night along with IV fluids. Toradol and Tylenol for pain/fever improved level of comfort. Zofran resolved nausea/emesis. Today patient reports less burning with urination and improved overall comfort. Would like to be discharged home but willing to return for IV Rocephin tonight and again tomorrow if culture results have not been returned. Anticipate switching patient over to oral meds at that time. Will avoid Cipro/Levaquin for now due to potential side effect/toxicity. Precautions reviewed prior to discharge. Covid testing pending. - Patient Instructions Diet: Usual Diet as Tolerated Driving: May Drive Today Showering/Bathing: May Shower Notify Provider of: Fever, Increased Pain, Nausea and/or Vomiting Other/Special Instructions: Return tonight for another dose of antibiotic. OK to come any time between 6-8pm. Anticipate returning again tomorrow night while we are waiting for your culture results. Please call if you have any questions/concerns and return to ER if you are experiencing worsening symptoms. You may need further evaluation as we discussed if this turns out to be something other than a urinary tract infection. Also, increase your Magnesium supplementation a little bit as your level is borderline low. - Discharge Plan *PRESCRIPTION DRUG MONITORING PROGRAM REVIEWED*: Not Applicable *COPY OF PRESCRIPTION DRUG MONITORING REPORT IN PATIENT DAVID: Not Applicable Home Medications: Home Meds Acetaminophen [Tylenol] 650 mg PO Q4H PRN 04/21/19 [History] Magnesium Oxide 400 mg PO DAILY #30 tab 04/21/19 [Rx] Multivitamin [Multi-Vitamin Daily] 1 each PO DAILY 04/21/19 [History] Ferrous Sulfate 325 mg PO DAILY 12/26/19 [History] Non-Formulary Medication [NF Drug] 1 each PO DAILY 12/26/19 [History] Zinc 50 mg PO DAILY 12/26/19 [History] Patient Handouts: Steps to Quit Smoking, [id number], Pyelonephritis, Adult, Coping with Quitting Smoking, Smoking Tobacco Information, Adult, Potassium chloride tablets, extended-release tablets or capsules, Ketorolac injection, Ondansetron injection, Ceftriaxone injection, Urinary Tract Infection, Adult, Nicotine skin patches Forms: Return to Work/Inpatient LLN, ED Department Discharge Referrals: PCP,Not In Area [Primary Care Provider] - - Discharge Summary/Plan Comment DC Time >30 min.: No - General Info Date of Service: 12/27/19 Admission Dx/Problem (Free Text: Suspected UTI Subjective Update: Overall feels improved. Still has some discomfort with urination. Left sided back pain/low abdominal pain improved. No fever this morning. Nausea/emesis improved. Functional Status: Reports: Pain Controlled Numeric/FACES Score: 4 - Review of Systems General: Denies: Fever, Weakness, Chills, Night Sweats HEENT: Reports: Other (no acute changes) Pulmonary: Reports: No Symptoms Cardiovascular: Reports: No Symptoms Gastrointestinal: Reports: Abdominal Pain (suprapubic/left mid and lower abdomen), Decreased Appetite, Nausea (improved with zofran), Vomiting (improved with zofran). Denies: Constipation, Diarrhea, Difficulty Swallowing, Hematochezia, Melena Genitourinary: Reports: Dysuria, Frequency, Burning, Flank Pain. Denies: Hem aturia Musculoskeletal: Reports: No Symptoms Skin: Reports: No Symptoms Neurological: Reports: Headache Psychiatric: Reports: No Symptoms - Patient Data Vitals - Most Recent: Last Vital Signs Temp 37.7 C 12/27/19 10:06 Pulse 94 12/27/19 07:47 Resp 20 12/27/19 07:47 BP 127/61 12/27/19 07:47 Pulse Ox 100 12/27/19 07:47 Weight - Most Recent: 93.894 kg I&O - Last 24 hours: Intake & Output 12/26/19 12/27/19 12/27/19 22:59 06:59 14:59 Intake Total 800 1808 440 Output Total 100 350 200 Balance 700 1458 240 Lab Results - Last 24 hrs: Laboratory Results - last 24 hr 12/26/19 12/26/19 12/26/19 Range/Units 20:23 20:23 21:35 WBC 13.7 H (4.0-10.2) K/uL RBC 4.02 (3.77-5.09) M/uL Hgb 12.5 (11.7-15.5) g/dL Hct 37.5 (34.0-46.0) % MCV 93.3 (84.0-98.0) fL MCH 31.1 (28.2-33.3) pg MCHC 33.3 (31.7-36.0) g/dL RDW 12.1 (11.2-14.1) % Plt Count 141 L (150-350) K/uL Neut % (Auto) 91.7 H (45.0-80.0) % Lymph % (Auto) 3.5 L (10.0-50.0) % [place] % (Auto) 4.6 (2.0-14.0) % Eos % (Auto) 0.1 (0.0-5.0) % Baso % (Auto) 0.1 (0.0-2.0) % Neut # (Auto) 12.52 H (1.40-7.00) K/uL Lymph # (Auto) 0.48 L (0.50-3.50) K/uL [place] # (Auto) 0.63 (0.00-1.00) K/uL Eos # (Auto) 0.01 (0.00-0.50) K/uL Baso # (Auto) 0.02 (0.00-0.20) K/uL Sodium (136-145) mmol/L Potassium (3.5-5.1) mmol/L Chloride (98-107) mmol/L Carbon Dioxide (21.0-32.0) mmol/L BUN (7-18) mg/dL Creatinine (0.51-1.17) mg/dL Est Cr Clr Drug Dosing Estimated GFR (MDRD) mL/min Glucose (74-106) mg/dL Lactic Acid (0.4-2.0) mmol/L Calcium (8.5-10.1) mg/dL Magnesium (1.8-2.4) mg/dL Total Bilirubin (0.2-1.0) mg/dL AST (15-37) U/L ALT (12-78) U/L Alkaline Phosphatase (46-116) IU/L Total Protein (6.4-8.2) g/dL Albumin (3.4-5.0) g/dL Specimen Type Urinvoid Urine Color Yellow Urine Appearance Clear Urine pH 6.5 (5.0-9.0) Ur Specific [place] 1.020 (1.005-1.030) Urine Protein 100 H (NEGATIVE) mg/dL Urine Glucose (UA) Negative (NEGATIVE) mg/dL Urine Ketones 15 H (NEGATIVE) mg/dL Urine Occult Blood Moderate H (NEGATIVE) Urine Nitrite Negative (NEGATIVE) Urine Bilirubin Negative (NEGATIVE) Urine Urobilinogen 1.0 (0.2-1.0) E.U./dL Ur Leukocyte Esterase Trace H (NEGATIVE) Urine RBC 5-10 H /HPF Urine WBC 10-20 H /HPF Ur Epithelial Cells Moderate H /LPF Urine Bacteria Moderate H (NONE TO FEW) /HPF Urine HCG, Qual Negative 12/26/19 12/26/19 12/27/19 Range/Units 21:35 21:35 09:48 WBC 9.0 (4.0-10.2) K/uL RBC 3.54 L (3.77-5.09) M/uL Hgb 11.0 L D (11.7-15.5) g/dL Hct 33.6 L (34.0-46.0) % MCV 94.9 (84.0-98.0) fL MCH 31.1 (28.2-33.3) pg MCHC 32.7 (31.7-36.0) g/dL RDW 12.3 (11.2-14.1) % Plt Count 107 L (150-350) K/uL Neut % (Auto) 86.2 H (45.0-80.0) % Lymph % (Auto) 5.1 L (10.0-50.0) % [place] % (Auto) 8.3 (2.0-14.0) % Eos % (Auto) 0.2 (0.0-5.0) % Baso % (Auto) 0.2 (0.0-2.0) % Neut # (Auto) 7.78 H (1.40-7.00) K/uL Lymph # (Auto) 0.46 L (0.50-3.50) K/uL [place] # (Auto) 0.75 (0.00-1.00) K/uL Eos # (Auto) 0.02 (0.00-0.50) K/uL Baso # (Auto) 0.02 (0.00-0.20) K/uL Sodium 136 (136-145) mmol/L Potassium 3.3 L (3.5-5.1) mmol/L Chloride 99 (98-107) mmol/L Carbon Dioxide 26.4 (21.0-32.0) mmol/L BUN 12 (7-18) mg/dL Creatinine 0.82 (0.51-1.17) mg/dL Est Cr Clr Drug Dosing TNP Estimated GFR (MDRD) > 60 mL/min Glucose 115 H (74-106) mg/dL Lactic Acid 1.2 (0.4-2.0) mmol/L Calcium 9.1 (8.5-10.1) mg/dL Magnesium (1.8-2.4) mg/dL Total Bilirubin 0.6 (0.2-1.0) mg/dL AST 17 (15-37) U/L ALT 21 (12-78) U/L Alkaline Phosphatase 67 (46-116) IU/L Total Protein 7.7 (6.4-8.2) g/dL Albumin 3.7 (3.4-5.0) g/dL Specimen Type Urine Color Urine Appearance Urine pH (5.0-9.0) Ur Specific [place] (1.005-1.030) Urine Protein (NEGATIVE) mg/dL Urine Glucose (UA) (NEGATIVE) mg/dL Urine Ketones (NEGATIVE) mg/dL Urine Occult Blood (NEGATIVE) Urine Nitrite (NEGATIVE) Urine Bilirubin (NEGATIVE) Urine Urobilinogen (0.2-1.0) E.U./dL Ur Leukocyte Esterase (NEGATIVE) Urine RBC /HPF Urine WBC /HPF Ur Epithelial Cells /LPF Urine Bacteria (NONE TO FEW) /HPF Urine HCG, Qual 12/27/19 Range/Units 09:48 WBC (4.0-10.2) K/uL RBC (3.77-5.09) M/uL Hgb (11.7-15.5) g/dL Hct (34.0-46.0) % MCV (84.0-98.0) fL MCH (28.2-33.3) pg MCHC (31.7-36.0) g/dL RDW (11.2-14.1) % Plt Count (150-350) K/uL Neut % (Auto) (45.0-80.0) % Lymph % (Auto) (10.0-50.0) % [place] % (Auto) (2.0-14.0) % Eos % (Auto) (0.0-5.0) % Baso % (Auto) (0.0-2.0) % Neut # (Auto) (1.40-7.00) K/uL Lymph # (Auto) (0.50-3.50) K/uL [place] # (Auto) (0.00-1.00) K/uL Eos # (Auto) (0.00-0.50) K/uL Baso # (Auto) (0.00-0.20) K/uL Sodium 138 (136-145) mmol/L Potassium 3.9 (3.5-5.1) mmol/L Chloride 104 (98-107) mmol/L Carbon Dioxide 24.4 (21.0-32.0) mmol/L BUN 9 (7-18) mg/dL Creatinine 0.76 (0.51-1.17) mg/dL Est Cr Clr Drug Dosing 124.49 Estimated GFR (MDRD) > 60 mL/min Glucose 100 (74-106) mg/dL Lactic Acid (0.4-2.0) mmol/L Calcium 8.0 L (8.5-10.1) mg/dL Magnesium 1.7 L (1.8-2.4) mg/dL Total Bilirubin (0.2-1.0) mg/dL AST (15-37) U/L ALT (12-78) U/L Alkaline Phosphatase (46-116) IU/L Total Protein (6.4-8.2) g/dL Albumin (3.4-5.0) g/dL Specimen Type Urine Color Urine Appearance Urine pH (5.0-9.0) Ur Specific [place] (1.005-1.030) Urine Protein (NEGATIVE) mg/dL Urine Glucose (UA) (NEGATIVE) mg/dL Urine Ketones (NEGATIVE) mg/dL Urine Occult Blood (NEGATIVE) Urine Nitrite (NEGATIVE) Urine Bilirubin (NEGATIVE) Urine Urobilinogen (0.2-1.0) E.U./dL Ur Leukocyte Esterase (NEGATIVE) Urine RBC /HPF Urine WBC /HPF Ur Epithelial Cells /LPF Urine Bacteria (NONE TO FEW) /HPF Urine HCG, Qual Med Orders - Current: Current Medications Acetaminophen (Tylenol) 650 mg PO Q4H PRN PRN Reason: analgesia/fever Last Admin: 12/27/19 08:58 Dose: 650 mg Documented by: Sodium Chloride (Normal Saline) 1,000 mls @ 150 mls/hr IV ASDIRECTED [facility] Last Admin: 12/27/19 06:47 Dose: 150 mls/hr Documented by: Ketorolac Tromethamine (Toradol) 30 mg IVPUSH Q6H PRN PRN Reason: Pain Stop: 12/31/19 05:01 Last Admin: 12/27/19 04:26 Dose: 30 mg Documented by: Nicotine (Habitrol) 21 mg TRDERM DAILY [facility] Last Admin: 12/27/19 08:54 Dose: Not Given Documented by: Ondansetron HCl (Zofran) 4 mg IVPUSH Q6H PRN PRN Reason: Nausea/Vomiting Sodium Chloride (Saline Flush) 10 ml FLUSH ASDIRECTED PRN PRN Reason: Keep Vein Open Last Admin: 12/26/19 23:06 Dose: 10 ml Documented by: Discontinued Medications Sodium Chloride (Normal Saline) 1,000 mls @ 999 mls/hr IV ASDIRECTED [facility] Last Admin: 12/26/19 21:30 Dose: 999 mls/hr Documented by: Ceftriaxone Sodium 1 gm/ (Sodium Chloride) 100 mls @ 200 mls/hr IV ONETIME ONE Stop: 12/26/19 22:56 Last Admin: 12/26/19 23:06 Dose: 200 mls/hr Documented by: Ketorolac Tromethamine (Toradol) 30 mg IVPUSH ONETIME ONE Stop: 12/26/19 21:43 Last Admin: 12/26/19 21:55 Dose: 30 mg Documented by: Ondansetron HCl (Zofran) 4 mg IVPUSH ONETIME ONE Stop: 12/26/19 21:43 Last Admin: 12/26/19 21:55 Dose: 4 mg Documented by: Potassium Chloride (Klor-Con M20) 40 meq PO ONETIME ONE Stop: 12/26/19 22:10 Last Admin: 12/26/19 22:22 Dose: 40 meq Documented by: Potassium Chloride (Klor-Con 10) 20 meq PO ONETIME ONE Stop: 12/27/19 01:01 Last Admin: 12/27/19 01:22 Dose: 20 meq Documented by: - Exam General: Reports: Alert, Oriented, Cooperative HEENT: Reports: Pupils Equal, Pupils Reactive, EOMI, Mucous Membr. Moist/[place] Neck: Reports: Supple Lungs: Reports: Clear to Auscultation, Normal Respiratory Effort Cardiovascular: Reports: Regular Rate, Regular Rhythm GI/Abdominal Exam: Soft, Tender (over bladder/LLQ). No: Guarding, Rigid, Rebound (Female) Exam: Deferred Rectal (Female) Exam: Deferred Back Exam: Reports: CVA Tenderness (L) Extremities: Normal Inspection, Normal Capillary Refill Skin: Reports: Warm, Dry Neurological: Reports: No New Focal Deficit Psy/Mental Status: Reports: Alert, Normal Affect, Normal Mood
== END 2019-12-27 12:20 | disposition home or self-care (01) ==
LOC: LL.ED 21:15 → LL.MS 22:41
PROVIDERS: ADMIT Emergency Medicine; ATTEND Emergency Medicine
DX: R10.9 Unspecified abdominal pain (principal); R30.0 Dysuria; E83.42 Hypomagnesemia; K21.9 Gastro-esophageal reflux disease without esophagitis; F41.8 Other specified anxiety disorders; Z71.6 Tobacco abuse counseling; E66.9 Obesity, unspecified; F41.9 Anxiety disorder, unspecified; F32.9 Major depressive disorder, single episode, unspecified; R82.81 Pyuria; D69.6 Thrombocytopenia, unspecified; Z87.440 Personal history of urinary (tract) infections; Z79.899 Other long term (current) drug therapy; Z68.29 Body mass index [BMI] 29.0-29.9, adult
CPT/HCPCS: 36415; 71045; 80048; 80053; 81001; 81025; 83605; 83735; 85025; 87040; 87086; 96361; 96365; 96374; 96375; 96376; 99284-25; A9270-GY; G0378; J0696; J1885; J2405; J7030; J7050; U0002